=== PATIENT | female | born 1985 | race Caucasian/White ===

== ENCOUNTER 2016-12-23 02:28 | Emergency (ER) | payer OTHER ==
[~2016-12-23 02:28] MED LIST: ALLERGY10 M1 PO; MEDROL4 MG/DOSE- PO; NAPROSYN500 MG PO; ZITHROMAX1 G/PKT PO
[2016-12-23] MEDS ORDERED: TOPAMAX PO (02:36)
[2016-12-23] MEDS ORDERED: GRALISE1 EACH (02:37)
[2016-12-23] MEDS ORDERED: METFORMIN PO (02:37)
[2016-12-23 02:57] LABS: URINE SOURCE CLEAN CATCH
[2016-12-23 02:59] LABS: URINE APPEARANCE CLEAR; URINE BILIRUBIN NEG (NEG); URINE BLOOD 1+ (NEG); URINE COLOR YELLOW; URINE GLUCOSE NEG (NORM); URINE KETONE NEG (NEG); URINE LEUKOCYTE ESTERASE NEG (NEG); URINE NITRATE NEG (NEG); URINE PH 7.5 (5-8); URINE PROTEIN NEG (NEG); URINE SPECIFIC GRAVITY <=1.005 (1.003-1.035); URINE UROBILINOGEN 0.2 MG/DL (NORM)
[2016-12-23 03:02] LABS: MICRO INDICATED? YES
[2016-12-23 03:06] LABS: CULTURE INDICATED? NO; URINE BACTERIA NEG (NEG); URINE WBC 0-2 /[HPF] (0-5)
[2017-04-15] MEDS ORDERED: GABAPENTIN300 MG PO (22:10)
[2017-04-15] MEDS ORDERED: METHADONE PO (22:11)
== END 2016-12-23 03:51 | disposition home or self-care (01) ==
LOC: SED 02:28
PROVIDERS: Emergency Medicine
DX: R10.9 Unspecified abdominal pain (principal); R11.0 Nausea; R19.7 Diarrhea, unspecified; E11.9 Type 2 diabetes mellitus without complications; F17.200 Nicotine dependence, unspecified, uncomplicated; Z87.440 Personal history of urinary (tract) infections; Z87.442 Personal history of urinary calculi; Z98.51 Tubal ligation status; Z88.1 Allergy status to other antibiotic agents; Z88.2 Allergy status to sulfonamides; Z79.899 Other long term (current) drug therapy; Z79.84 Long term (current) use of oral hypoglycemic drugs
CPT/HCPCS: 81003; 84703; 99284